=== PATIENT | female | born 1955 | race Caucasian/White ===

== ENCOUNTER 2017-11-29 08:33 | Day surgery (SDC) | payer MEDICAID ==
[2017-11-29] MEDS ORDERED: Propofol 10 mg/ml Inj (20 ML) ONE (10:07)
[2017-11-29] MEDS ORDERED: Lactated Ringer's 500 ML IV SCH (10:15)
[2017-11-29] MEDS ORDERED: Lidocaine Hydrochloride 5 ML INJ ONE (10:19)
[2017-11-29 10:41] VITALS: TEMP 96.9
[2017-11-29 11:12] VITALS: RESP 13; O2SAT 99
[2017-11-29 12:35] VITALS: BP 135/75; PULSE 66
== END 2017-11-29 11:35 | disposition home or self-care (01) ==
LOC: C.ENDO 08:33
PROVIDERS: ATTEND Internal Medicine
DX: K29.70 Gastritis, unspecified, without bleeding (principal); K44.9 Diaphragmatic hernia without obstruction or gangrene
CPT/HCPCS: 43239; 88305; 88313; 88342; J2704; J7120